=== PATIENT | male | born 1990 | race Caucasian/White ===

== ENCOUNTER 2016-11-11 17:56 | Emergency (ER) | payer OTHER ==
[~2016-11-11] VITALS: Ht 167.6 cm; Wt 70.0 kg
[2016-11-11 17:56] VITALS: TEMP 36.7; Ht 167.6 cm; Wt 70.0 kg
--- NOTE | 2016-11-11 18:09 | EMERGENCY ROOM VISIT NOTE ---
History Report prepared by Subha: Ar Iyer Under the Supervision of: Dr. Joo Estrada D.O. First contact with patient: 17:58 Stated Complaint: FACIAL PAIN/ABRASION/ MEMORY LOST, SKI ACCIDENT History of Present Illness The patient is a 26 year old male who presents to the Emergency Room with complaints of an acute fall that occurred when he was skiing just prior to arrival. The patient was skiing at [facility] when he fell. He is not sure what caused the fall. The patient lost consciousness when he fell. He now has a slight headache. The patient also notes that his face is numb on the left side. The patient denies neck, back, extremity pain, nausea, or vomiting. The patient was able to recognize his friends afterwards. The patient was not wearing a helmet. The patient denies an health problems. He is an occasional smoker but does not drink alcohol. 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 A total of 10 systems reviewed and were otherwise negative. Past Medical & Surgical Medical Problems: (1) Depression Family History No significant family history Social History Smoking Status: Current Some Day Smoker Alcohol Use: occasionally Marital Status: single Housing Status: lives with friends Occupation Status: [employer] student Current/Historical Medications No Active Prescriptions or Reported Meds Allergies Coded Allergies: No Known Allergies (Unverified , 11/11/16) Physical Exam Vital Signs Date Time Temp Pulse Resp B/P Pulse Ox O2 Delivery O2 Flow Rate FiO2 11/11/16 19:50 95 18 141/79 98 11/11/16 19:30 95 18 141/79 98 Room Air 11/11/16 17:56 18 11/11/16 17:56 36.7 100 18 141/79 98 Room Air Physical Exam GENERAL: Patient is awake, alert, and in no acute distress. Patient is resting comfortably and showing no signs of anxiety EYES: The conjunctivae are clear. The pupils are round and reactive. EARS, NOSE, MOUTH AND THROAT: The nose is without any evidence of any deformity. Mucous membranes are moist tongue is midline. TMs are clear bilaterally. No malocclusion noted. NECK: The neck is nontender and supple. RESPIRATORY: Normal respiratory effort is noted there is no evidence of wheezing rhonchi or rales CARDIOVASCULAR: Regular rate and rhythm noted there no murmurs rubs or gallops normal S1 normal S2 GASTROINTESTINAL: The abdomen is soft. Bowel sounds are present in all quadrants. Abdomen is nontender BACK: No midline tenderness or or step-off noted range of motion in flexion extension as well as rotation no signs of muscle spasm noted MUSCULOSKELETAL/EXTREMITIES: There is no evidence of gross deformity full range of motion is noted in the hips and shoulders SKIN: There is no obvious evidence of any rash. There are no petechiae, pallor or cyanosis noted. Contusion noted over the left forehead and left upper cheek. NEUROLOGIC: Patient is awake alert and oriented x3 strength is symmetric patellar reflexes are 2+ bilaterally Medical Decision & Procedures ER Provider Diagnostic Interpretation: CT results as stated below per my review and radiologist interpretation. CERVICAL SPINE CT CT DOSE: HISTORY: Trauma injury, left side of face TECHNIQUE: Multiaxial CT images of the cervical spine were performed and reformatted in the sagittal and coronal plane without the use of contrast. COMPARISON: None. FINDINGS: No fractures. No subluxation. Prevertebral soft tissues and the C1-C2 interval are intact. No pneumothorax. IMPRESSION: No fractures within the cervical spine. Electronically signed by: Nilton Hoyos M.D. 11/11/2016 6:34 PM Dictated Date/Time: 11/11/2016 6:[address]AST CT DOSE: HISTORY: Trauma. Change in mental status. injury, left side of face TECHNIQUE: Multiaxial CT images of the head were performed without the use of intravenous contrast. Comparison: 08/09/2015 Findings: The paranasal sinuses and mastoid air cells are clear. The calvarium and skull base are intact. The ventricles and sulci are within normal limits. There is no mass, hematoma, midline shift, or acute infarct. Impression: No acute intracranial abnormality. Electronically signed by: Nilton Hoyos M.D. 11/11/2016 6:30 PM Dictated Date/Time: 11/11/2016 6:[address] DOSE: 1046.90 mGy.cm HISTORY: Trauma injury, left side of face TECHNIQUE: Multiaxial CT images of the maxillofacial region were performed and reformatted in the coronal plane without the use of contrast. COMPARISON: None. FINDINGS: The visualized cervical spine, skull base, pterygoid plates, nasal bones, lamina papyracea, orbital floors, mandible, and zygomatic arches are intact. No fractures. The orbits are unremarkable. IMPRESSION: No fractures within the maxillofacial region. Electronically signed by: Nilton Hoyos M.D. 11/11/2016 6:32 PM Dictated Date/Time: 11/11/2016 6:30 PM ED Course 1805: The patient was evaluated in room C11a. A complete history and physical examination were performed. 1930: Reassessed the patient. Discussed the findings with him. He verbalized understanding and agreement of the treatment plan. The patient is ready for discharge. Medical Decision Etiologies such as fracture, dislocation, intra-abdominal, pneumothorax, intrathoracic , intracranial, neurologic, as well as other traumatic pathologies were entertained. Nursing notes reviewed. Additional history is obtained from the patient's friends. The patient is a 26-year-old male who presented to the emergency department for an evaluation after having an accident while skiing. The patient has obvious facial trauma but there was reported episode of confusion and repetitive questioning. The patient appears to be significantly improved at this time. His friends state that he appears to be at his baseline. He has no focal neurologic deficits. His CAT scan did not reveal any acute intracranial bleeding or facial bone injury. The patient did not wish to have any medications for pain at this time. He was encouraged to rest and avoid any strenuous activity. She was also given concussion instructions and encouraged to avoid screening time. He was also encouraged to follow-up with [facility] for possible referral concussion clinic and return to the emergency department immediately if symptoms change worsen or the need arises. Impression Primary Impression: Facial contusion Additional Impression: Head injury, closed, with concussion Scribe Attestation The scribe's documentation has been prepared under my direction and personally reviewed by me in its entirety. I confirm that the note above accurately reflects all work, treatment, procedures, and medical decision making performed by me. Departure Information Dispostion Home / Self-Care Prescriptions No Active Prescriptions or Reported Meds Referrals [facility] (PCP) Forms HOME CARE DOCUMENTATION FORM, IMPORTANT VISIT INFORMATION, School Instructions, Work Instructions Patient Instructions Concussion, My [facility] Additional Instructions Rest and avoid any strenuous activity. Try to limit screen time including computers and handheld devices. Continue using Motrin and Tylenol as directed for headache. Follow-up with [facility] this week. If symptoms do not improve I would recommend a referral to the concussion clinic for further evaluation and treatment. Problem Qualifiers
--- NOTE | 2016-11-11 18:31 | DIAGNOSTIC IMAGING REPORT ---
HEAD CT NONCONTRAST CT DOSE: HISTORY: Trauma. Change in mental status. injury, left side of face TECHNIQUE: Multiaxial CT images of the head were performed without the use of intravenous contrast. Comparison: 08/09/2015 Findings: The paranasal sinuses and mastoid air cells are clear. The calvarium and skull base are intact. The ventricles and sulci are within normal limits. There is no mass, hematoma, midline shift, or acute infarct. Impression: No acute intracranial abnormality. Electronically signed by: Nilton Hoyos M.D. 11/11/2016 6:30 PM Dictated Date/Time: 11/11/2016 6:29 PM
--- NOTE | 2016-11-11 18:33 | DIAGNOSTIC IMAGING REPORT ---
MAXILLOFACIAL CT CT DOSE: 1046.90 mGy.cm HISTORY: Trauma injury, left side of face TECHNIQUE: Multiaxial CT images of the maxillofacial region were performed and reformatted in the coronal plane without the use of contrast. COMPARISON: None. FINDINGS: The visualized cervical spine, skull base, pterygoid plates, nasal bones, lamina papyracea, orbital floors, mandible, and zygomatic arches are intact. No fractures. The orbits are unremarkable. IMPRESSION: No fractures within the maxillofacial region. Electronically signed by: Nilton Hoyos M.D. 11/11/2016 6:32 PM Dictated Date/Time: 11/11/2016 6:30 PM
--- NOTE | 2016-11-11 18:35 | DIAGNOSTIC IMAGING REPORT ---
CERVICAL SPINE CT CT DOSE: HISTORY: Trauma injury, left side of face TECHNIQUE: Multiaxial CT images of the cervical spine were performed and reformatted in the sagittal and coronal plane without the use of contrast. COMPARISON: None. FINDINGS: No fractures. No subluxation. Prevertebral soft tissues and the C1-C2 interval are intact. No pneumothorax. IMPRESSION: No fractures within the cervical spine. Electronically signed by: Nilton Hoyos M.D. 11/11/2016 6:34 PM Dictated Date/Time: 11/11/2016 6:32 PM
[2016-11-11 19:50] VITALS: BP 141/79; PULSE 95; O2SAT 98
== END 2016-11-11 19:52 | disposition home or self-care (01) ==
LOC: EDBD 17:56 → C.EDC 17:57
DX: S00.83XA Contusion of other part of head, initial encounter (principal); S06.0X9A Concussion with loss of consciousness of unspecified duration, initial encounter; V00.321A Fall from snow-skis, initial encounter; F17.210 Nicotine dependence, cigarettes, uncomplicated

== ENCOUNTER 2017-10-29 18:21 | Inpatient (IN) | payer OTHER ==
[~2017-10-29] VITALS: Ht 170.2 cm; Wt 78.4 kg
[2017-10-29] MEDS ORDERED: EFF75 PO (19:08)
--- NOTE | 2017-10-29 19:08 | EMERGENCY ROOM VISIT NOTE ---
History Report prepared by Subha: Genoveva Robbins Under the Supervision of: Dr. Smaantha Cha D.O. First contact with patient: 18:40 Chief Complaint: OVERDOSE (INTENTIONAL) Stated Complaint: OVERDOSE APROLASM AND SLEEPING AID History of Present Illness The patient is a 26 year old male who presents to the Emergency Room with complaints of an episode of an intentional medication overdose occurring last night. The patient states that last night he took about 24, 25 mg sleeping pills / The patient states that after taking the sleeping pills her took his alprazolam. After taking the medication, the patient states he pulled a bag over his head. He states he researched suicide attempts and states suffocating is the most "peaceful way to commit suicide on the internet". The patient reports he does not remember what happened after that. He states we was awoken from a knock on the door at 5 pm tonight, about two hours ago. The patient states that his friend apparently jumped on his balcony around 1 pm today and saw that the patient was sleeping. When the patient was woken up from the knock on the door, his room was a mess, there was vomit all over the floor, and he was not wearing any clothes. The patient states he attempted to commit suicide a couple years ago by cutting himself. He reports he started to feel depressed and have suicidal thoughts at the beginning of this school semester. The patient is also on Effexor The patient states his physician tried to increase his Effexor but he refused to take the increased dosage. The patient has a therapist but states he was unable to talk to his therapist this past week. Presently, the patient has a headache. He notes some fleeting homicidal thoughts. He states that sometimes he feels like people are out to get him. The patient has a family history of depression. Pt denies headache, change in vision , fevers, chest pain, shortness of breath, nausea, vomiting, diarrhea, pain with urination, and melena. Source of History: patient Onset: last night Position: other (generalized) Quality: other (medication overdose) Timing: other (episode) Associated Symptoms: + headache, No fevers, No chest pain, No SOB, No nausea , No vomiting, No diarrhea, No urinary symptoms Review of Systems See HPI for pertinent positives & negatives. A total of 10 systems reviewed and were otherwise negative. Past Medical & Surgical Medical Problems: (1) Depression (2) Depression (3) OK (generalized anxiety disorder) (4) Major depressive disorder, recurrent severe without psychotic features Family History Depression Social History Smoking Status: Never Smoker Occupation Status: [employer] student Current/Historical Medications Scheduled Venlafaxine Hcl (Effexor), 37.5 MG PO DAILY Scheduled PRN [Alprazolam], 1 TAB PO DIRECTED PRN for Anxiety Allergies Coded Allergies: No Known Allergies (Unverified , 11/11/16) Physical Exam Vital Signs Date Time Temp Pulse Resp B/P (MAP) Pulse Ox O2 Delivery O2 Flow Rate FiO2 10/29/17 23:19 79 18 121/59 98 Room Air 10/29/17 20:54 86 18 123/75 98 Room Air 10/29/17 18:32 93 18 101/65 99 Room Air Physical Exam GENERAL: alert, well appearing, well nourished, no distress, non-toxic EYE EXAM: normal conjunctiva, PERRL and EOM's grossly intact OROPHARYNX: no exudate, no erythema, lips, buccal mucosa, and tongue normal and mucous membranes are moist NECK: supple, no nuchal rigidity, no adenopathy, non-tender LUNGS: Clear to auscultation. Normal chest wall mechanics HEART: no murmurs, S1 normal and S2 normal ABDOMEN: abdomen soft, non-tender, normo-active bowel sounds, no masses, no rebound or guarding. BACK: Back is symmetrical on inspection and there is no deformity, no midline tenderness, no CVA tenderness. SKIN: no rashes and no bruising UPPER EXTREMITIES: upper extremities are grossly normal. LOWER EXTREMITIES: No pitting edema. NEURO EXAM: Normal sensorium, cranial nerves II-XII grossly intact, normal speech, no gross weakness of arms, no gross weakness of legs. Medical Decision & Procedures ER Provider Diagnostic Interpretation: Radiology results have been interpreted by the radiologist and reviewed by me. HEAD WITHOUT CONTRAST (CT) Findings: The paranasal sinuses and mastoid air cells are clear. The calvarium and skull base are intact. The ventricles and sulci are within normal limits. There is no mass, hematoma, midline shift, or acute infarct. Impression: No acute intracranial abnormality. The above report was generated using voice recognition software. It may contain grammatical, syntax or spelling errors. Electronically signed by: Nilton Hoyos M.D. Laboratory Results 10/29/17 19:36 Red Blood Count 5.04, Mean Corpuscular Volume 86.9, Mean Corpuscular Hemoglobin 31.0, Mean Corpuscular Hemoglobin Concent 35.6, Mean Platelet Volume 10.5, Neutrophils (%) (Auto) 59.0, Lymphocytes (%) (Auto) 30.8, Monocytes (%) (Auto) 8.7, Eosinophils (%) (Auto) 1.1, Basophils (%) (Auto) 0.1, Neutrophils # (Auto) 4.12, Lymphocytes # (Auto) 2.15, Monocytes # (Auto) 0.61, Eosinophils # (Auto) 0.08, Basophils # (Auto) 0.01 10/29/17 19:39 Test 10/29/17 19:05 10/29/17 19:36 10/29/17 19:39 10/29/17 19:50 Urine Opiates Screen NEG (NEG) Urine Methadone, Qualitative NEG (NEG) Urine Barbiturates NEG (NEG) Urine Phencyclidine (PCP) Level NEG (NEG) Ur Amphetamine/Methamphetamine NEG (NEG) MDMA (Ecstasy) Screen NEG (NEG) Urine Benzodiazepines Screen POS (NEG) Urine Cocaine Metabolite NEG (NEG) Urine Marijuana (THC) NEG (NEG) White Blood Count 6.99 K/uL (4.8-10.8) Red Blood Count 5.04 M/uL (4.7-6.1) Hemoglobin 15.6 g/dL (14.0-18.0) Hematocrit 43.8 % (42-52) Mean Corpuscular Volume 86.9 fL (80-100) Mean Corpuscular Hemoglobin 31.0 pg (25-34) Mean Corpuscular Hemoglobin Concent 35.6 g/dl (32-36) Platelet Count 247 K/uL (130-400) Mean Platelet Volume 10.5 fL (7.4-10.4) Neutrophils (%) (Auto) 59.0 % Lymphocytes (%) (Auto) 30.8 % Monocytes (%) (Auto) 8.7 % Eosinophils (%) (Auto) 1.1 % Basophils (%) (Auto) 0.1 % Neutrophils # (Auto) 4.12 K/uL (1.4-6.5) Lymphocytes # (Auto) 2.15 K/uL (1.2-3.4) Monocytes # (Auto) 0.61 K/uL (0.11-0.59) Eosinophils # (Auto) 0.08 K/uL (0-0.5) Basophils # (Auto) 0.01 K/uL (0-0.2) RDW Standard Deviation 41.1 fL (36.4-46.3) RDW Coefficient of Variation 12.9 % (11.5-14.5) Immature Granulocyte % (Auto) 0.3 % Immature Granulocyte # (Auto) 0.02 K/uL (0.00-0.02) Ethyl Alcohol mg/dL < 3.0 mg/dl (0-3) Prothrombin Time 10.0 SECONDS (9.0-12.0) Prothromb Time International Ratio 1.0 (0.9-1.1) Anion Gap 4.0 mmol/L (3-11) Est Creatinine Clear Calc Drug Dose 113.6 ml/min Estimated GFR () 131.8 Estimated GFR (Non- 113.7 BUN/Creatinine Ratio 11.0 (10-20) Calcium Level 8.8 mg/dl (8.5-10.1) Magnesium Level 1.9 mg/dl (1.8-2.4) Total Bilirubin 0.5 mg/dl (0.2-1) Aspartate Amino Transf (AST/SGOT) 15 U/L (15-37) Alanine Aminotransferase (ALT/SGPT) 32 U/L (12-78) Alkaline Phosphatase 75 U/L (45-117) Total Protein 7.0 gm/dl (6.4-8.2) Albumin 3.7 gm/dl (3.4-5.0) Globulin 3.3 gm/dl (2.5-4.0) Albumin/Globulin Ratio 1.1 (0.9-2) Lipase 192 U/L (73-393) Thyroid Stimulating Hormone (TSH) 0.429 uIu/ml (0.300-4.500) Salicylates Level < 1.7 mg/dl (2.8-20) Acetaminophen Level < 2 ug/ml (10-30) Urine Color YELLOW Urine Appearance CLEAR (CLEAR) Urine pH 6.5 (4.5-7.5) Urine Specific Eldred 1.016 (1.000-1.030) Urine Protein NEG (NEG) Urine Glucose (UA) NEG (NEG) Urine Ketones NEG (NEG) Urine Occult Blood NEG (NEG) Urine Nitrite NEG (NEG) Urine Bilirubin NEG (NEG) Urine Urobilinogen NEG (NEG) Urine Leukocyte Esterase NEG (NEG) Laboratory results per my review. ECG Indication: toxicologic Rate (beats per minute): 81 Rhythm: sinus rhythm Findings: no acute ischemic change, no ectopy, other (normal axis normal intervals, mild T-wave flattening in lead 3, aVF, aVL.) Change: EKG interpreted by me. ED Course 184: The patient was evaluated in room A6. A complete history and physical exam was performed. 2352: Patient to be transported up to 3 S. Voluntary admission form signed. Medical Decision Differential diagnosis: Etiologies such as mood disorder, infection, hypoglycemia, electrolyte abnormalities, cardiac sources, intracerebral event, toxicologic, neurologic, as well as others were entertained. Pt well appearing here despite OD attempt last night. No evidence of complication related to OD or persistent sx. No n/v here. Pt awake/alert. Labs reassuring. VS stable. Pt agreeable with plan for admission for depression/SI and attempt. Pt calm and cooperative throughout. Doubt additional coingestion last night. No evidence of persistent anticholinergic syndrome. Medication Reconcilliation Current Medication List: was personally reviewed by me Blood Pressure Screening Patient's blood pressure: Normal blood pressure Impression Primary Impression: Depression Additional Impressions: Suicide attempt Homicidal ideation Overdose Scribe Attestation The scribe's documentation has been prepared under my direction and personally reviewed by me in its entirety. I confirm that the note above accurately reflects all work, treatment, procedures, and medical decision making performed by me. Departure Information Patient Instructions My [facility] Problem Qualifiers Primary Impression: Depression Depression Type: unspecified Qualified Codes: F32.9 - Major depressive disorder, single episode, unspecified Additional Impressions: Overdose Encounter type: initial encounter Injury intent: intentional self-harm Qualified Codes: T50.902A - Poisoning by unspecified drugs, medicaments and biological substances, intentional self-harm, initial encounter
[2017-10-29] MEDS ORDERED: ALPRAZOLAM PO (19:10)
[2017-10-29 19:56] LABS: BASO % 0.1 %; BASO ABS # 0.01 K/uL (0-0.2); EOS % 1.1 %; EOS ABS # 0.08 K/uL (0-0.5); HEMATOCRIT 43.8 % (42-52); HEMOGLOBIN 15.6 g/dL (14.0-18.0); IG# 0.02 K/uL (0.00-0.02); LYMPH % 30.8 %; LYMPH ABS # 2.15 K/uL (1.2-3.4); MEAN CELL VOLUME 86.9 fL (80-100); MEAN CORPUSCULAR HGB CONC 35.6 g/dl (32-36); MEAN PLATELET VOLUME 10.5 fL (7.4-10.4); MONO % 8.7 %; MONO ABS # 0.61 K/uL (0.11-0.59); NEUT ABS # 4.12 K/uL (1.4-6.5); PLATELET COUNT 247 K/uL (130-400); RED CELL DISTRIBUTION WIDTH CV 12.9 % (11.5-14.5); RED CELL DISTRIBUTION WIDTH SD 41.1 fL (36.4-46.3); WHITE BLOOD COUNT 6.99 K/uL (4.8-10.8)
--- NOTE | 2017-10-29 19:59 | DIAGNOSTIC IMAGING REPORT ---
HEAD WITHOUT CONTRAST (CT) CT DOSE: 537.48 mGy.cm HISTORY: Mental status change fall, head trauma TECHNIQUE: Multiaxial CT images of the head were performed without the use of intravenous contrast. A dose lowering technique was utilized adhering to the principles of ALARA. Comparison: None. Findings: The paranasal sinuses and mastoid air cells are clear. The calvarium and skull base are intact. The ventricles and sulci are within normal limits. There is no mass, hematoma, midline shift, or acute infarct. Impression: No acute intracranial abnormality. The above report was generated using voice recognition software. It may contain grammatical, syntax or spelling errors. Electronically signed by: Nilton Hoyos M.D. 10/29/2017 7:58 PM Dictated Date/Time: 10/29/2017 7:57 PM
[2017-10-29 20:19] LABS: ALBUMIN 3.7 gm/dl (3.4-5.0); CALCIUM 8.8 mg/dl (8.5-10.1); CREATININE 0.93 mg/dl (0.60-1.40); POTASSIUM 3.6 mmol/L (3.5-5.1)
[2017-10-30] MEDS ORDERED: LORAZEPAM 1 MG TAB PO PRN (00:15)
[2017-10-30] MEDS ORDERED: NURSING VERBAL MED ORDER ONE (00:15)
[2017-10-30 00:30] VITALS: O2SAT 98
[2017-10-30] MEDS ORDERED: ALUMINUM/MAGNESIUM SUSP 30 ML UDC PO PRN (00:45)
[2017-10-30] MEDS ORDERED: MAGNESIUM HYDROXIDE SUSP 30 ML UDC PO PRN (00:45)
[2017-10-30] MEDS ORDERED: hydrOXYzine HCL 25 MG TAB PO PRN ×2 (00:45)
[2017-10-30] MEDS ORDERED: SODIUM CHLORIDE 0.65% NA SOLN 45 ML (OCEAN) PRN (00:45)
[2017-10-30] MEDS ORDERED: BISMUTH SUBSALICYLATE PER ML OMNICELL CHARGE PO PRN (00:45)
[2017-10-30] MEDS ORDERED: ACETAMINOPHEN 325 MG TAB PO PRN (00:45)
[2017-10-30 04:46] VITALS: BP 118/62; PULSE 76; TEMP 36.8; Ht 170.2 cm; Wt 78.4 kg
[2017-10-30 07:03] VITALS: BP_SYST 105; BP_SYST 107; BP_DIAS 62; PULSE 83; PULSE 98; TEMP 36.6
[2017-10-30] MEDS ORDERED: EFF/375 PO (09:14)
[2017-10-30] MEDS ORDERED: VENLAFAXINE HCL XR 75 MG CAPXR PO ONE (09:26)
--- NOTE | 2017-10-30 09:26 | Psychiatric History & Physical ---
History Date of Service Oct 30, 2017. Identifying Data Tete Tolliver is a 27-year-old male admitted voluntarily on Oct 30, 2017 at 00:08 after being brought to the ED by his onion topper and friends following an intentional toxic ingestion of multiple sleeping medications in a suicide attempt. Information is gathered from the patient and considered to be reliable. Chief Complaint "Is it worth it (life)?". 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 At that time he was treated with Zoloft and discharged to the outpatient care of Dr. Jackson. Since that time he apparently has also had a trial of Wellbutrin which she said he felt unwell on. Today his story is a little disjointed and unclear. 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 He feels, however, that he has not excelled in his studies and has a current GPA of just over 2.0. He has been struggling academically and last semester did not take at least one final which she was scheduled to take on Sunday morning. He got to worrying about that, feeling that if he took the final and failed, he would have to pay back his scholarships from [employer]. He did not want to risk this and so in view of his poor self image and risk for losing his scholarships, he began to consider the option of suicide. He is also under stress with his family. Apparently his mother is quite ill, in [place], and having some problems with her memory. He indicates that she had a stomach surgery with complications resulting in seizures. He says she is not fully intact, not remembering many times that he is in school in [place]. He feels, as her only son, that he should be there however he is not able to and so his sister is there with her and feels like he is also letting his sister down. Philosophically, he believes that suicide is not a sin and does not necessarily reflect state of depression but more a logical choice given the above stressors. On Sunday, he made a decision to end his life. He says he got "dressed up" and ingested [id number] sleeping pills and Xanax in a suicide attempt. He knew that that would not kill him and so he put 2 bags over his head and secured them with earphones in his ears playing his favorite music. Nursing staff also report that his phone was and perhaps hidden so that he could not summoned help. The patient remembers little after putting bags on his head and at 5:00 on Sunday, he was awakened by knocking at the door. At that time he found that he had no pants on , had vomited in his room, had ripped off the bags over his head. It is reported that his family friends and [facility] onion topper had attempted to contact him because he did not show up at [employer]. They ended up going to his apartment and found him in that condition. He did admit to his [facility] onion topper that he had taken the overdose and they brought him to the emergency department. He reports that his mood is been depressed for 2 or 3 years, and suicidal thinking has been going on intermittently recently. He reports that his sleep has been "horrible" and says that he wakes up feeling unrested and his mind immediately racing. He reports appetite that is essentially normal but he believes he is putting on weight because he is not active. He says his energy is "as low as it gets" although forces himself to be active and energetic when people are around. He denies any overt auditory or visual hallucinations. He does admit to a lot of negative self talk telling himself that he is stupid and unworthy. He says he has had a lot of anxiety especially in the last year having experienced a panic attack about one year ago. He denies any problems with eating disorders. He denies any discrete episodes of euphoric mood, sleeplessness or pleasure seeking behaviors that would be congruent with a bipolar disorder. He sees Dr. Jackson at [facility] has recommended a higher dose of Effexor but the patient has not wanted to take more because in his culture it is not seen positively. She had wanted him to take 75 but he is only taking 37.5 mg. Past Psychiatric History Current OP Treatment: psychiatrist (Dr. Jackson at [facility]), therapist (Leda [facility] at [facility]) Prior OP Treatment: no prior treatment Prior Psych Hospitalizations: [facility] (2013) Access to a Gun: No Suicide Attempts: Yes (by cutting his wrists in 2013) Past Medication Trials 1. Zoloft- felt worse, more depressed 2. Wellbutrin0 didn't like the way he felt Past Medical/Surgical History History of Concussion/Seizure: No Allergies Allergies: Coded Allergies: No Known Allergies (Unverified , 11/11/16) Home Medications Scheduled Venlafaxine Hcl (Effexor), 75 MG PO DAILY Scheduled PRN [Alprazolam], 1 TAB PO DIRECTED PRN for Anxiety Family History Depression No significant family history History of Suicide: No History of Substance Abuse: No Psychiatric History: Yes (mother with depression and anxiety) Mother with poorly explained medical conditions Alcohol Use Alcohol Use In Past 12 Months: No AUDIT Total Score: 0 Smoking Use Smoking Status: Light Tobacco Smoker 2 packs in the last 2 weeks Substance History Denies Personal History Lives in: [facility] College Childhood: Raised in [facility]. Parents when he was 6. He has 1 sister. Education: started college (will graduate in February) Work History: Does not work outside of school but will be returning to [employer] upon graduation Relationship History: never Children: none Spiritual Affiliation: Church Legal History: none Psychological Trauma History: Denies Hx Traumatic Event Review of Systems Constitutional: malaise Eyes: denies: no symptoms, as stated in HPI, eye pain, tearing, itching, redness, discharge, double vision, visual changes, blurred vision, photophobia, other ENT: denies: no symptoms reported, see HPI, ear pain, ear discharge, loss of hearing, tinnitus, nasal pain, nasal congestion, rhinorrhea, epistaxis, sore throat, stidor, throat swelling, mouth pain, mouth swelling, dental pain, gum swelling, other Cardiovascular: denies: no symptoms reported, see HPI, chest pain, chest tightness, chest pressure, diaphoresis, palpitations, syncope, other Respiratory: denies: no symptoms reported, see HPI, cough, orthopnea, short of breath, stridor, wheezing, sputum production, cyanosis, NEUMANN, PND, other Gastrointestinal: denies no symptoms reported, denies see HPI, denies abdominal pain, denies constipation, denies diarrhea, denies nausea, denies vomiting, denies other Genitourinary - Male: denies: no symptoms, see HPI, rash, amenorrhea, penile itching, penile discharge, testicular pain, testicular swelling, impotence, other Musculoskeletal: denies no symptoms reported, denies see HPI, denies back pain , denies gout, denies joint pain, denies joint swelling, denies muscle pain, denies muscle stiffness, denies neck pain, denies other Integumentary: other (abrasion right cheek bone) Neurologic: reports: headache Endocrine: denies: no symptoms, as stated in HPI, cold intolerance, heat intolerance, hair changes, goiter, polydipsia, polyuria, skin changes, other Hematologic / Lymphatic: denies: no symptoms, as stated in HPI, abnormal clotting, adenopathy, anemia, easy bleeding, easy bruising, gums bleeding, petechiae, other Examination Physical Examination Exam performed by Dr. villafuerte in the emergency Department has been reviewed and accepted his medical clearance for our unit Vital Signs Vital Signs Past 12 Hours Date Time Temp Pulse Resp B/P (MAP) Pulse Ox O2 Delivery O2 Flow Rate FiO2 10/30/17 07:03 36.6 83 16 107/62 98 105/62 10/30/17 04:46 36.8 76 18 118/62 10/30/17 00:30 79 18 121/59 98 10/29/17 23:19 79 18 121/59 98 Room Air Laboratory Results Last 24 Hours Test 10/29/17 19:05 10/29/17 19:36 10/29/17 19:39 10/29/17 19:50 Urine Opiates Screen NEG Urine Methadone, Qualitative NEG Urine Barbiturates NEG Urine Phencyclidine (PCP) Level NEG Ur Amphetamine/Methamphetamine NEG MDMA (Ecstasy) Screen NEG Urine Benzodiazepines Screen POS Urine Cocaine Metabolite NEG Urine Marijuana (THC) NEG White Blood Count 6.99 K/uL Red Blood Count 5.04 M/uL Hemoglobin 15.6 g/dL Hematocrit 43.8 % Mean Corpuscular Volume 86.9 fL Mean Corpuscular Hemoglobin 31.0 pg Mean Corpuscular Hemoglobin Concent 35.6 g/dl Platelet Count 247 K/uL Mean Platelet Volume 10.5 fL Neutrophils (%) (Auto) 59.0 % Lymphocytes (%) (Auto) 30.8 % Monocytes (%) (Auto) 8.7 % Eosinophils (%) (Auto) 1.1 % Basophils (%) (Auto) 0.1 % Neutrophils # (Auto) 4.12 K/uL Lymphocytes # (Auto) 2.15 K/uL Monocytes # (Auto) 0.61 K/uL Eosinophils # (Auto) 0.08 K/uL Basophils # (Auto) 0.01 K/uL RDW Standard Deviation 41.1 fL RDW Coefficient of Variation 12.9 % Immature Granulocyte % (Auto) 0.3 % Immature Granulocyte # (Auto) 0.02 K/uL Ethyl Alcohol mg/dL < 3.0 mg/dl Prothrombin Time 10.0 SECONDS Prothromb Time International Ratio 1.0 Sodium Level 139 mmol/L Potassium Level 3.6 mmol/L Chloride Level 105 mmol/L Carbon Dioxide Level 30 mmol/L Anion Gap 4.0 mmol/L Blood Urea Nitrogen 10 mg/dl Creatinine 0.93 mg/dl Est Creatinine Clear Calc Drug Dose 113.6 ml/min Estimated GFR () 131.8 Estimated GFR (Non- 113.7 BUN/Creatinine Ratio 11.0 Random Glucose 77 mg/dl Calcium Level 8.8 mg/dl Magnesium Level 1.9 mg/dl Total Bilirubin 0.5 mg/dl Aspartate Amino Transf (AST/SGOT) 15 U/L Alanine Aminotransferase (ALT/SGPT) 32 U/L Alkaline Phosphatase 75 U/L Total Protein 7.0 gm/dl Albumin 3.7 gm/dl Globulin 3.3 gm/dl Albumin/Globulin Ratio 1.1 Lipase 192 U/L Thyroid Stimulating Hormone (TSH) 0.429 uIu/ml Salicylates Level < 1.7 mg/dl Acetaminophen Level < 2 ug/ml Urine Color YELLOW Urine Appearance CLEAR Urine pH 6.5 Urine Specific [place] 1.016 Urine Protein NEG Urine Glucose (UA) NEG Urine Ketones NEG Urine Occult Blood NEG Urine Nitrite NEG Urine Bilirubin NEG Urine Urobilinogen NEG Urine Leukocyte Esterase NEG Mental Examination During interview pt is: alert and oriented, cooperative Appearance: appropriately dressed, disheveled Eye contact is: good Motor behavior is: no abnormal motor movements Speech: normal in rate, rhythm & volume Affect: anxious Mood is: depressed, anxious Thought process: other Thought content: reality based without delusions Suicidal thought are: present, Plan: present, Intent: present Homicidal thoughts are: denied Hallucinations: denies auditory, denies visual Cognition: memory grossly intact (with the exception of the period of time after ingesting the overdose) Intelligence estimated to be: average Insight: impaired Judgement: impaired Impression / Recommendations Impression 27-year-old [employer] student admitted following suicide attempt by polydrug overdose. He seems cautious in a philosophical quandary about whether or not he should have the right to end his life given his attitude toward his usefulness. We have discussed the fact that he is likely viewing life through depression colored glasses and deserves to completely treat his depression before making any decisions. To that end, he has agreed to increase his Effexor to 75 mg today and hopefully getting to a therapeutic dose of 150 mg as soon as possible. Risks, benefits, and alternatives reviewed and accepted including the risk for decreased sex drive and interfering with orgasm. He had previously been informed of the black box warning. In view of his mother's medical conditions, he does not want to involve her in his treatment, but has already told his friends to notify his sister of his hospitalization. We will coordinate with his current outpatient providers and assist him to communicate with the school as needed. At this time, the patient requires inpatient mental health treatment due to the severity of his condition and the risk for self- harm if discharged. Inventory Assets Strengths: Love of family, willingness to engage in treatment Needs: To develop additional healthy coping strategies Risk Factors Assessment Male: Yes : Yes /single/: Yes Higher / Fall in social status: No Access to guns: No Health problems: No Mental Health Diagnoses: Yes Substance use disorders: No Previous attempt: Yes Previous attempt;highly lethal: No Previous psychiatric stay: Yes Hopelessness: Yes Smoker: Yes Protective Factors Assessment Adventist beliefs: Yes : No Responsible for young children: No Employed: No Stable relationships: Yes Supportive family: Yes Good rapport with provider: Yes Recommendations (1) Major depressive disorder, recurrent severe without psychotic features 10/30 - Patient willing to increase Effexor to therapeutic dose. Will increase to 75 mg today and titrate to 150 as soon as possible - Obtain records from an coordinate care with current outpatient providers - Family meeting by phone with sister as needed - Contact the school as needed - Assist the patient to explore and utilize healthy coping strategies - Every 15 minute checks for safety - Encourage participation in group and individual counseling (2) OK (generalized anxiety disorder) 10/30 - Assist the patient to explore concepts of mindfulness - Effexor as above Dr. Sapna soto is personally been involved in reviewing the above case and the development of the above recommendations CPT Code Initial Hospital Care: 94680
[2017-10-30 13:35] VITALS: BP 104/58; PULSE 80; TEMP 36.4
[2017-10-30 16:40] VITALS: BP 113/49; PULSE 72; TEMP 36.4
[2017-10-31 07:01] VITALS: BP_SYST 115; BP_SYST 120; BP_DIAS 65; BP_DIAS 70; PULSE 73; PULSE 83; TEMP 36.8
[2017-10-31] MEDS: VENLAFAXINE HCL XR 75 MG CAPXR PO SCH (08:57)
--- NOTE | 2017-10-31 12:31 | Psychiatric Progress Notes ---
Progress Note Date of Service Oct 31, 2017. Interval History Tete Tolliver is a 27-year-old male admitted voluntarily on Oct 30, 2017 at 00:08 after being brought to the ED by his impregnating tank operator and friends following an intentional toxic ingestion of multiple sleeping medications in a suicide attempt. Chief Complaint "A little better". Subjective Patient was seen & assessed interval progress reviewed with Treatment Team. Staff report he met with the social media marketing manager to discuss his plans regarding school and where he will live, and was initially overwhelmed and unable to process his situation. He also checked the unit doors, saying he wanted to know if they were locked. In contacting [facility] to determine if he could be seen there for outpatient treatment, it was discovered that he is not enrolled in [employer] and is on academic suspension, and is also in default as he did not pay for his last semester yet. The office of student care and advocacy was contacted as well. He told staff that he was "indifferent" about life, and smiled while discussing all of the planning he put into his suicide attempt. He said "the only thing worse than completing suicide is failing at it." He also said that he did not feel any different than when he was admitted to the hospital. He met with the social media marketing manager again today and they contacted his sister, who is in [place] with his mother. She encouraged him to return home after discharge from the hospital so that he can be with family. He discussed in more detail his school stressors and the role this played in his plan suicide. He said that he did not complete some of his classes last semester, so deferred the grades, and never completed the finals so was unable to get his final grades, which he needed to get his scholarship money for this semester. He did not know how to get out of this cycle, and decided to end his life, as he also thought this would prevent his family from being billed for his education. He also talked about his desire to "go out on top" rather than waiting until his life continued to deteriorate. On my exam today, the patient states he is feeling a bit better after talking to his sister, who is in [place] with their mother who is ill, who told him he should enroll in a university in [facility], and he now thinks this might be a good option for him. He says she was also upset with him for trying to kill himself. He feels a little more hopeful about his future, saying "I thought it was the end of the road, but maybe not." He was also pleased to hear that his mother walked for the first time in over a year today, as she has been in [place] for a year getting medical treatment. He remains stressed by his financial issues, stating he has to pay back his scholarship money. He is working with the social media marketing manager to clarify his status with the university. He continues to think about suicide, and says "the problem is that there's not a really successful method, it's a lot harder than people think." He says he researched it extensively, and knows that shooting and hanging are the most likely to end in , and his chosen method was the third. He doesn't think he would attempt suicide again right now because he wouldn't want to be unsuccessful again. He talked about "throwing everyone off my scent, by making appointments with everyone for the week after." He continues to express remorse that his suicide attempt did not work and that he is still alive, saying he is "disappointed, it's like a project , I put a lot of work into it." He plans to go to [place] to be with his family after discharge, and says his girlfriend who is in [place] is coming here on Sunday. He is worried she might break up with him, saying "she is really mad too." He also has to go to [facility] to renew his passport, as it expires this year. He reports he has bottles of Effexor and Advil at home, possibly others. He says the Xanax he overdosed on was an old prescription, and that it is gone, as he took the whole bottle. Sleep Information Total Hours of Sleep: 6.50 Meal Information Percent of Breakfast Consumed: 100 Percent of Lunch Consumed: 100 Percent of Dinner Consumed: 100 Mental Status Exam During interview pt is: alert and oriented, cooperative Appearance: appropriately dressed, disheveled, other (abrasion on right side of face, states he doesn't know how it got there) Eye contact is: good Motor behavior is: no abnormal motor movements Speech: normal in rate, rhythm & volume Affect: anxious, other (incongruent with stated mood) Mood is: other ("a little bit better") Thought process: goal directed Thought content: reality based without delusions Suicidal thought are: present, Plan: present (discusses various methods that he has researched extensively) Homicidal thoughts are: denied Hallucinations: denies auditory, denies visual Cognition: memory grossly intact (with the exception of the period of time after ingesting the overdose), attention grossly intact, language grossly intact Intelligence estimated to be: average Insight: impaired Judgement: impaired Medication Trials 1. Zoloft- felt worse, more depressed 2. Wellbutrin - didn't like the way he felt 3. 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 He continues to report disappointment that he did not , and his affect is incongruent. On admission, he agreed to increase his Effexor to 75 mg daily, and we will aim for 150 mg before discharge. He has had decreased sex drive and anorgasmia, but discussed the importance of treating his depression first, which is life threatening, and then working on a plan for mitigating side effects at a later date, which he is in agreement with. His sister has been contacted, and we are trying to coordinate with the [facility] regarding his status there, while planning for appropriate aftercare and supports in [facility], as he is now planning on returning home. The logistics are very complex, as his family is currently in [place]. At this time, the patient requires inpatient mental health treatment due to the severity of his condition and the risk for self-harm if discharged. Plan (1) Major depressive disorder, recurrent severe without psychotic features 10/30 - Patient willing to increase Effexor to therapeutic dose. Will increase to 75 mg today and titrate to 150 as soon as possible - Obtain records from an coordinate care with current outpatient providers - Family meeting by phone with sister as needed - Contact the school as needed - Assist the patient to explore and utilize healthy coping strategies - Every 15 minute checks for safety - Encourage participation in group and individual counseling 10/31 - Continue increased dose of venlafaxine XR 75 mg daily, and increase to 112.5 mg daily for tomorrow. - Family meeting held with sister by phone today; she encouraged the patient to return home to be with family, which she is agreeing to. He is stating he will need to go to court weight first, and then on to [place] to join his mother and sister. He will need aftercare in that area, so we'll need further clarification about which country he will be in and for how long. - Social work is coordinating with the [employer] regarding his status as a student here. - He will need a comprehensive safety plan. (2) OK (generalized anxiety disorder) 10/30 - Assist the patient to explore concepts of mindfulness - Effexor as above Discharge / Aftercare Planning Primary Care Physician: Name: None Therapist: Name: Qasim [facility] Date of Appointment: Nov 06, 2017 Time of Appointment: 12:00 p.m. Dual Hose Cementer: Name: None Visit Code E&M Code: 91720 Inventory Assets Strengths: Love of family, willingness to engage in treatment Needs: To develop additional healthy coping strategies Risk Factors Assessment Male: Yes : Yes /single/: Yes Higher / Fall in social status: No Health problems: No Mental Health Diagnoses: Yes Substance use disorders: No Previous attempt: Yes Previous attempt;highly lethal: No Previous psychiatric stay: Yes Hopelessness: Yes Smoker: Yes Protective Factors Assessment Moravian beliefs: Yes : No Responsible for young children: No Employed: No Stable relationships: Yes Supportive family: Yes Good rapport with provider: Yes Data Vital Signs Last 24 Hrs: Date Time Temp Pulse Resp B/P (MAP) Pulse Ox O2 Delivery O2 Flow Rate FiO2 10/31/17 07:01 36.8 73 16 120/65 83 115/70 10/30/17 16:40 36.4 72 16 113/49 10/30/17 13:35 36.4 80 16 104/58 Meds Administered Last 24 Hrs: Meds Administered (Past 24Hrs) Medications (Trade) Dose Ordered Sig/Jerica Route Start Time Stop Time Status Last Admin Dose Admin Venlafaxine HCl (effeXOR EXTENDED REL CAP) 75 mg QAM PO 10/31/17 09:00 11/30/17 08:59 10/31/17 08:57 75 MG Venlafaxine HCl (effeXOR EXTENDED REL CAP) 75 mg 0926 ONCE PO 10/30/17 09:26 10/30/17 09:30 DC 10/30/17 10:02 75 MG
[2017-11-01 07:02] VITALS: BP_SYST 112; BP_SYST 119; BP_DIAS 48; BP_DIAS 66; PULSE 70; PULSE 80; TEMP 36.5
[2017-11-01] MEDS: VENLAFAXINE HCL XR 75 MG CAPXR PO SCH (09:20)
[2017-11-01] MEDS: VENLAFAXINE HCL XR 37.5 MG CAPXR PO SCH (09:20)
--- NOTE | 2017-11-01 12:34 | Psychiatric Progress Notes ---
Progress Note Date of Service Nov 01, 2017. 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 Chief Complaint "Everyone is so nice here". Subjective Patient was seen & assessed interval progress reviewed with Nursing. Staff reports mother and sister participated in phone meeting yesterday in which aftercare had been discussed. Pt reported that sister has taken care of his schooling and travel plans. Pt is interested in returning to [facility] following discharge and will then head to [place] to stay with his mother and sister. Pt was seen today to assess progress since admission. Pt states he is in a "good mood" today, but is feeling a bit "trapped" here on the unit. He reports that everyone has been very nice, but "there is a whole world out there I cannot access". Pt denies side effects with the increased dose of Effexor this morning. He does report vivid dreams of being chased, missing exams, etc. which he feels may be related to the medication, though predate initiation of Effexor. Pt states he has had time to process his suicide attempt and now feels remorse and guilt for having done that to his loved ones. Pt is interested in learning better ways to cope with stressors, and is continuing to process what has led him to this point. Pt states his plan is to return to [facility], where it is anticipated his cousins will come to stay with him for a while. He then plans to stay with his sister and mother in [place]. He continues to states that his sister has made arrangements for his schooling and that he does not need to worry about these plans. He denies SI/HI, A/V hallucinations and other psychosis. Review of Systems Psych: denies symptoms other than stated above Constitutional: denied Cardiovascular: denied GI: denied Neurologic: denied Remainder of 10 body systems also reviewed and denied other than noted above. Sleep Information Total Hours of Sleep: 5.50 Meal Information Percent of Breakfast Consumed: 100 Percent of Lunch Consumed: 90 Percent of Dinner Consumed: 100 Mental Status Exam During interview pt is: alert and oriented, cooperative Appearance: appropriately dressed, appropriately groomed Eye contact is: good Motor behavior is: no abnormal motor movements Speech: normal in rate, rhythm & volume Affect: euthymic Mood is: other ("I'm in a good mood today") Thought process: goal directed, clear, coherent Thought content: reality based without delusions Suicidal thought are: denied (upon questioning today), Plan: present (as researched various methods extensively) Homicidal thoughts are: denied Hallucinations: denies auditory, denies visual Cognition: memory grossly intact, attention grossly intact, language grossly intact Intelligence estimated to be: average Insight: fair Judgement: fair Medication Trials 1. Zoloft- felt worse, more depressed 2. Wellbutrin - didn't like the way he felt 3. C+Xanax - overdosed on it Impression Pt reports improvement since admission. Feels his mood is improving and that he has had an opportunity to process his suicide attempt. He now reports he feels guilty as his life has not been stressful. Pt continues to agree with plan to increase Effexor. Started dosage of 112.5 this morning and reports no current side effects. Staff reported patient is not permitted to return to [employer] , and patient states his sister has arranged for him to finish his degree at home. Ongoing discussion about this process and determining aftercare. Patient continues to require inpatient mental health treatment due to the severity of his condition and the risk for self-harm if discharged prematurely. Plan (1) Major depressive disorder, recurrent severe without psychotic features 10/30 - Patient willing to increase Effexor to therapeutic dose. Will increase to 75 mg today and titrate to 150 as soon as possible - Obtain records from an coordinate care with current outpatient providers - Family meeting by phone with sister as needed - Contact the school as needed - Assist the patient to explore and utilize healthy coping strategies - Every 15 minute checks for safety - Encourage participation in group and individual counseling 10/31 - Continue increased dose of venlafaxine XR 75 mg daily, and increase to 112.5 mg daily for tomorrow. - Family meeting held with sister by phone today; she encouraged the patient to return home to be with family, which she is agreeing to. He is stating he will need to go to [facility] first, and then on to [place] to join his mother and sister. He will need aftercare in that area, so we'll need further clarification about which country he will be in and for how long. - Social work is coordinating with the [employer] regarding his status as a student here. - He will need a comprehensive safety plan. 11/01 - Continue Effexor 112.5mg. Plan in place to continue to titrate dose to 150mg. - Continue to navigate aftercare with patient and is family as he will be returning to [facility] and then heading to [place]. - Reported patient is not permitted to return to [employer] [facility] [employer] [facility] to finish his degree. - Discussed need for safety plan, which patient is agreeable to, unable to discuss convincing plan at today's encounter as processing of his suicide attempt is ongoing, but is willing to continue to work on this. (2) OK (generalized anxiety disorder) 10/30 - Assist the patient to explore concepts of mindfulness - Effexor as above Discharge / Aftercare Planning Primary Care Physician: Name: None Therapist: Name: Qasim Angel [facility] Date of Appointment: Nov 06, 2017 Time of Appointment: 12:00 p.m. Staff Radiation Therapist: Name: None Visit Code E&M Code: 43230 Inventory Assets Strengths: Love of family, willingness to engage in treatment Needs: To develop additional healthy coping strategies Risk Factors Assessment Male: Yes : Yes /single/: Yes Higher / Fall in social status: No Health problems: No Mental Health Diagnoses: Yes Substance use disorders: No Previous attempt: Yes Previous attempt;highly lethal: No Previous psychiatric stay: Yes Hopelessness: Yes Smoker: Yes Protective Factors Assessment Jew beliefs: Yes : No Responsible for young children: No Employed: No Stable relationships: Yes Supportive family: Yes Good rapport with provider: Yes Data Vital Signs Last 24 Hrs: Date Time Temp Pulse Resp B/P (MAP) Pulse Ox O2 Delivery O2 Flow Rate FiO2 11/01/17 07:02 36.5 70 16 119/48 80 112/66 Meds Administered Last 24 Hrs: Meds Administered (Past 24Hrs) Medications (Trade) Dose Ordered Sig/Jerica Route Start Time Stop Time Status Last Admin Dose Admin Venlafaxine HCl (effeXOR EXTENDED REL CAP) 75 mg QAM PO 10/31/17 09:00 11/30/17 08:59 11/01/17 09:20 75 MG Venlafaxine HCl (effeXOR EXTENDED REL CAP) 37.5 mg QAM PO 11/01/17 09:00 12/01/17 08:59 11/01/17 09:20 37.5 MG
[2017-11-02 07:05] VITALS: BP_SYST 108; BP_SYST 118; BP_DIAS 61; BP_DIAS 62; PULSE 66; PULSE 96; TEMP 36.4
[2017-11-02] MEDS: VENLAFAXINE HCL XR 37.5 MG CAPXR PO SCH (08:04)
[2017-11-02] MEDS: VENLAFAXINE HCL XR 75 MG CAPXR PO SCH (08:04)
--- NOTE | 2017-11-02 10:39 | Psych Management Progress Note ---
Psychiatry Miscellaneous Date of Service: Nov 02, 2017. Patient seen, MS assessed. Rates mood as 9/10. Encouraged cooperation with care and treatment plan as outlined by allied health prescriber. He verbalized understanding of need for safety planning around his travel but minimizes staff concerns. He will have a meeting with his girlfriend.
[2017-11-02] MEDS ORDERED: VENLAFAXINE HCL XR 37.5 MG CAPXR PO ONE (11:15)
--- NOTE | 2017-11-02 12:17 | Psychiatric Progress Notes ---
Progress Note Date of Service Nov 02, 2017. Interval History Tete Tolliver is a 27-year-old male admitted voluntarily on Oct 30, 2017 at 00:08 after being brought to the ED by his community chest officer and friends following an intentional toxic ingestion of multiple sleeping medications in a suicide attempt. Chief Complaint "I have a few questions about my discharge". Subjective Patient was seen & assessed interval progress reviewed with Treatment Team. Staff reports improvement in the patient in regard to mood. metalworker has been in contact with the patient's sister during his admission, and sister reports she is willing to purchase a plane ticket for the patient when she has a better idea of discharge date. Pt was seen today to assess progress since admission. Pt states he has questions about his length of stay as he was hoping for discharge today. Pt was informed that formal discharge planning would have to be in place prior to consideration for discharge. Pt offers suggests of resources available until he can book a flight to [facility]. He was informed we would feel more comfortable if a flight were scheduled prior to discharge to help solidify his safety plan. Pt was encouraged to allow his sister to book the flight and take care of arrangements and was informed we would discuss further after the social services coordinator is able to speak with his sister. Pt states he has tolerated Effexor well at 112.5mg. He denies side effects and is in agreement to continue to titrate the dose to a target of 150mg. Pt denies SI today and states he is in a "happy mood". Review of Systems Psych: denies symptoms other than stated above Constitutional: denied Cardiovascular: denied GI: denied Neurologic: denied Remainder of 10 body systems also reviewed and denied other than noted above. Sleep Information Total Hours of Sleep: 7.00 Meal Information Percent of Breakfast Consumed: 100 Percent of Lunch Consumed: 100 Percent of Dinner Consumed: 100 Mental Status Exam During interview pt is: alert and oriented, cooperative Appearance: appropriately dressed, appropriately groomed Eye contact is: good Motor behavior is: no abnormal motor movements Speech: normal in rate, rhythm & volume Affect: anxious (concerned about discharge arrangements) Mood is: other ("happy mood") Thought process: goal directed, clear, coherent Thought content: reality based without delusions Suicidal thought are: denied (today), Plan: present (admitted s/p OD; has researched various methods extensively) Homicidal thoughts are: denied Hallucinations: denies auditory, denies visual Cognition: memory grossly intact, attention grossly intact, language grossly intact Intelligence estimated to be: average Insight: fair Judgement: fair Medication Trials 1. Zoloft- felt worse, more depressed 2. Wellbutrin - didn't like the way he felt 3. C+Xanax - overdosed on it Impression Pt is very focused on discharge and helping with arrangements. Pt's current plan is to leave with his girlfriend and return with her to [place]. From there, he will book a flight to [facility], stay for 1-2 weeks, and then join his family in [place]. Pt was informed that this provider could not guarantee a discharge today, but would work with social work to talk with his sister and coordinate plans. At this point, discharge shouldn't be considered until concrete plans are in place and contact has been made with the parties involved. metalworker is waiting on return call from sister to continue this process. Pt plans to continue taking medications after discharge and states he will find a provider when he is in [place] about 1-2 weeks after discharge. A 30-day prescription at discharge should allow him time to make these arrangements. Will increase Effexor to target dose of 150mg today as he has been tolerating the medication well. Pt verbalized understanding and was in agreement. Ongoing inpatient mental health treatment due to high-risk suicide attempt and risk for self-harm at discharge. Pt also requires additional focus on aftercare to ensure safe discharge. Plan (1) Major depressive disorder, recurrent severe without psychotic features 10/30 - Patient willing to increase Effexor to therapeutic dose. Will increase to 75 mg today and titrate to 150 as soon as possible - Obtain records from an coordinate care with current outpatient providers - Family meeting by phone with sister as needed - Contact the school as needed - Assist the patient to explore and utilize healthy coping strategies - Every 15 minute checks for safety - Encourage participation in group and individual counseling 10/31 - Continue increased dose of venlafaxine XR 75 mg daily, and increase to 112.5 mg daily for tomorrow. - Family meeting held with sister by phone today; she encouraged the patient to return home to be with family, which she is agreeing to. He is stating he will need to go to [facility] first, and then on to [place] to join his mother and sister. He will need aftercare in that area, so we'll need further clarification about which country he will be in and for how long. - Social work is coordinating with the [employer] regarding his status as a student here. - He will need a comprehensive safety plan. 11/01 - Continue Effexor 112.5mg. Plan in place to continue to titrate dose to 150mg. - Continue to navigate aftercare with patient and is family as he will be returning to [facility] and then heading to [place]. - Reported patient is not permitted to return to [employer] to finish his degree. - Discussed need for safety plan, which patient is agreeable to, unable to discuss convincing plan at today's encounter as processing of his suicide attempt is ongoing, but is willing to continue to work on this. 11/02 - Effexor 37.5mg one time dose ordered. Pt will have received 150mg total today. Continue Effexor 150mg qAM. - Awaiting return call from sister to discuss plane ticket and discharge arrangements. - Continue to encourage group participation while on the unit. (2) OK (generalized anxiety disorder) 10/30 - Assist the patient to explore concepts of mindfulness - Effexor as above Discharge / Aftercare Planning Primary Care Physician: Name: None Therapist: Name: Qasim Angel - [facility] Date of Appointment: Nov 06, 2017 Time of Appointment: 12:00 p.m. Expediter Service Order: Name: Kasia Visit Code E&M Code: 40158 Inventory Assets Strengths: Love of family, willingness to engage in treatment Needs: To develop additional healthy coping strategies Risk Factors Assessment Male: Yes : Yes /single/: Yes Higher / Fall in social status: No Health problems: No Mental Health Diagnoses: Yes Substance use disorders: No Previous attempt: Yes Previous attempt;highly lethal: No Previous psychiatric stay: Yes Hopelessness: Yes Smoker: Yes Protective Factors Assessment Jainism beliefs: Yes : No Responsible for young children: No Employed: No Stable relationships: Yes Supportive family: Yes Good rapport with provider: Yes Data Vital Signs Last 24 Hrs: Date Time Temp Pulse Resp B/P (MAP) Pulse Ox O2 Delivery O2 Flow Rate FiO2 11/02/17 07:05 36.4 66 16 108/61 96 118/62 Meds Administered Last 24 Hrs: Meds Administered (Past 24Hrs) Medications (Trade) Dose Ordered Sig/Jerica Route Start Time Stop Time Status Last Admin Dose Admin Venlafaxine HCl (effeXOR EXTENDED REL CAP) 37.5 mg QAM PO 11/01/17 09:00 11/02/17 11:23 DC 11/02/17 08:04 37.5 MG
[2017-11-03 06:54] VITALS: BP_SYST 109; BP_DIAS 62; BP_DIAS 67; PULSE 73; PULSE 77; TEMP 36.4
[2017-11-03] MEDS ORDERED: VENLAFAXINE HCL XR 150 MG CAPXR PO SCH (09:00)
--- NOTE | 2017-11-03 09:58 | Psychiatric Progress Notes ---
Progress Note Date of Service Nov 03, 2017. 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 Chief Complaint "Very, very good. How are you?". Subjective Patient was seen & assessed interval progress reviewed with Nursing. Staff reports discharge plan is for patient to stay with his girlfriend while packing up his apartment. She also plans to handle his medication during that time. His sister will purchase a plane ticket for him to fly to [facility] later in the week. Pt was seen today to assess progress since admission. Pt states he feels he has greatly improved and is feeling much better with increased medication. He remains focused on discharge and reports that he would like to go home today so he can attend orthodox tomorrow. Comments from his meeting yesterday with the social welfare clerk were reiterated and it was explained that verification of his plane ticket takes the place of his aftercare as we are unable to do much more for his unique situation. Pt understood this and requests to be allowed to check his phone periodically. Pt denies side effects to his increased dose of Effexor. Pt denies SI/HI. Review of Systems Psych: denies symptoms other than stated above Constitutional: denied Cardiovascular: denied GI: denied Neurologic: denied Remainder of 10 body systems also reviewed and denied other than noted above. Sleep Information Total Hours of Sleep: 8.00 Meal Information Percent of Breakfast Consumed: 100 Percent of Lunch Consumed: 100 Percent of Dinner Consumed: 100 Mental Status Exam During interview pt is: alert and oriented, cooperative Appearance: appropriately dressed, appropriately groomed Eye contact is: good Motor behavior is: steady gait & station, no abnormal motor movements Speech: normal in rate, rhythm & volume Affect: euthymic (excited for potential discharge) Mood is: other ("good, good") Thought process: goal directed, linear, logical, clear, coherent Thought content: reality based without delusions Suicidal thought are: denied, Plan: present (admitted s/p OD; other methods researched) Homicidal thoughts are: denied Hallucinations: denies auditory, denies visual Cognition: memory grossly intact, attention grossly intact, language grossly intact Intelligence estimated to be: average Insight: fair Judgement: fair Medication Trials 1. Zoloft- felt worse, more depressed 2. Wellbutrin - didn't like the way he felt 3. C+Xanax - overdosed on it Impression Pt remains focused on discharge. Arrangements made with exception of verifying plane ticket to [facility]. It was explained to patient several times that this ticket takes the place of his aftercare as his situation is unique and we are not able to do much more in respect to safe discharge and long-term care. Pt is aware of interim therapy session this coming week and plans to attend. Tolerating Effexor 150mg well and will be able to obtain and take medication until he is established in [place] with his sister and mother. Pt shows a great deal of improvement, but requires inpatient treatment until appropriate discharge planning can be verified. Pt's suicide attempt was very high-risk and safe discharge to prevent harm to self or decompensation requires verification of plans to return home. Plan (1) Major depressive disorder, recurrent severe without psychotic features 10/30 - Patient willing to increase Effexor to therapeutic dose. Will increase to 75 mg today and titrate to 150 as soon as possible - Obtain records from an coordinate care with current outpatient providers - Family meeting by phone with sister as needed - Contact the school as needed - Assist the patient to explore and utilize healthy coping strategies - Every 15 minute checks for safety - Encourage participation in group and individual counseling 10/31 - Continue increased dose of venlafaxine XR 75 mg daily, and increase to 112.5 mg daily for tomorrow. - Family meeting held with sister by phone today; she encouraged the patient to return home to be with family, which she is agreeing to. He is stating he will need to go to [facility] first, and then on to [place] to join his mother and sister. He will need aftercare in that area, so we'll need further clarification about which country he will be in and for how long. - Social work is coordinating with the [employer] regarding his status as a student here. - He will need a comprehensive safety plan. 11/01 - Continue Effexor 112.5mg. Plan in place to continue to titrate dose to 150mg. - Continue to navigate aftercare with patient and is family as he will be returning to [facility] and then heading to [place]. - Reported patient is not permitted to return to [employer] [facility] to finish his degree. - Discussed need for safety plan, which patient is agreeable to, unable to discuss convincing plan at today's encounter as processing of his suicide attempt is ongoing, but is willing to continue to work on this. 11/02 - Effexor 37.5mg one time dose ordered. Pt will have received 150mg total today. Continue Effexor 150mg qAM. - Awaiting return call from sister to discuss plane ticket and discharge arrangements. - Continue to encourage group participation while on the unit. 11/03 - Tolerating Effexor 150mg. Continue current medication regimen - Confirm plane ticket to [place]. Pt permitted to check phone periodically while on the unit as his sister will be sending the confirmation to him. - Appropriate for discharge once all aftercare planning has been verified. (2) OK (generalized anxiety disorder) 10/30 - Assist the patient to explore concepts of mindfulness - Effexor as above Discharge / Aftercare Planning Primary Care Physician: Name: None Therapist: Name: Qasim Angel - [facility] Date of Appointment: Nov 06, 2017 Time of Appointment: 12:00 p.m. Head Sawyer: Name: None Visit Code E&M Code: 22795 Inventory Assets Strengths: Love of family, willingness to engage in treatment Needs: To develop additional healthy coping strategies Risk Factors Assessment Male: Yes : Yes /single/: Yes Higher / Fall in social status: No Health problems: No Mental Health Diagnoses: Yes Substance use disorders: No Previous attempt: Yes Previous attempt;highly lethal: No Previous psychiatric stay: Yes Hopelessness: Yes Smoker: Yes Protective Factors Assessment Advent beliefs: Yes : No Responsible for young children: No Employed: No Stable relationships: Yes Supportive family: Yes Good rapport with provider: Yes Data Vital Signs Last 24 Hrs: Date Time Temp Pulse Resp B/P (MAP) Pulse Ox O2 Delivery O2 Flow Rate FiO2 11/03/17 06:54 36.4 73 14 109/67 77 109/62 Meds Administered Last 24 Hrs: Meds Administered (Past 24Hrs) Medications (Trade) Dose Ordered Sig/Jerica Route Start Time Stop Time Status Last Admin Dose Admin Venlafaxine HCl (effeXOR EXTENDED REL CAP) 37.5 mg NOW ONCE PO 11/02/17 11:15 11/02/17 11:16 DC 11/02/17 12:13 37.5 MG Venlafaxine HCl (effeXOR EXTENDED REL CAP) 150 mg QAM PO 11/03/17 09:00 12/03/17 08:59 11/03/17 09:24 150 MG
[2017-11-03] MEDS ORDERED: EFFSR150 PO (12:42)
--- NOTE | 2017-11-03 12:53 | Discharge Instructions ---
Discharge Information Report Includes Report will include the: Discharge Instructions & Summary Admission Admission Date / Time: Oct 30, 2017 at 00:08 Reason for Admission: MDR Discharge Discharge Diagnosis / Problem: Major depressive disorder Condition at Discharge: Good Discharge Goals Goal(s): Decrease discomfort, Improve function, Increase independence, Learn about illness, Therapeutic intervention Activity Recommendations Activity Limitations: resume your previous activity . Instructions / Follow-Up Instructions / Follow-Up . SPECIAL CARE INSTRUCTIONS: 1. Follow through with your scheduled aftercare appointments. If unable to keep an appointment, please call to reschedule. 2. Take your medication only as prescribed. Medication should not be changed or stopped without the approval of your doctor. In the event of worsening symptoms or concerns about side effects, contact your doctor immediately. 3. Utilize new healthy coping skills, anger management skills, and stress management skills learned during your hospitalization. Journal feelings and process them with a support person. Identify stressors or situations that may result in relapse, deterioration or inappropriate behaviors and develop a plan to deal with those issues. 4. If your coping skills are ineffective and you are in crisis, contact your outpatient providers for direction. If unable to reach your providers, please call the CAN HELP LINE AT or go to the closest Emergency Room. 5. Avoid alcohol and un-prescribed drugs. 6. You have been provided with the Mental Health Advance Directives Pamphlet for your review. AFTERCARE APPOINTMENTS: * Please call your insurance company prior to your scheduled appointment to confirm your aftercare providers are covered. Take your insurance information to your appointments. . Discharge / Aftercare Planning Primary Care Physician: Name: None Therapist: Name Of Therapist: Qasim Angel - [facility] Date of Appointment: Nov 06, 2017 Time of Appointment: 12:00 p.m. Cell Liner: Name: None . Follow-Up Care Plan for Follow-Up Care: Pt to have interim therapy session next week and will return to [facility] prior to going to [place] to be with his family. Pt states he will set up medical care in [place] once he arrives. 30 prescription sent which should allow him time to set up these services. Current Hospital Diet Patient's current hospital diet: Regular Diet Discharge Diet Recommended Diet: Regular Diet Procedures Procedures Performed: No Pending Studies Pending Studies at Discharge: No Medical Emergencies . Who to Call and When: Medical Emergencies: For questions or emergencies related to your hospital stay, please contact the Inpatient Behavioral Health Unit at [phone]. A healthcare customer service is on-call 30/04 for the Behavioral Health Unit for emergencies At any time you feel your situation is an emergency, you may also call 911 immediately. . Non-Emergent Contact Non-Emergency issues call your: Primary Care Provider, Therapist Advance Directives Do You Have an Existing Mental: No Existing Living Will: No Existing Power of Shell Maker Lockstitch: No Advance Directives Info Given: To Pt/S.O. Advance Directives Reason: Declines as Mental Health Visit. 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 At that time he was treated with Zoloft and discharged to the outpatient care of Dr. Jackson. Since that time he apparently has also had a trial of Wellbutrin which she said he felt unwell on. Today his story is a little disjointed and unclear. 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 He feels, however, that he has not excelled in his studies and has a current GPA of just over 2.0. He has been struggling academically and last semester did not take at least one final which she was scheduled to take on Sunday morning. He got to worrying about that, feeling that if he took the final and failed, he would have to pay back his scholarships from [facility]. He did not want to risk this and so in view of his poor self image and risk for losing his scholarships, he began to consider the option of suicide. He is also under stress with his family. Apparently his mother is quite ill, in [place], and having some problems with her memory. He indicates that she had a stomach surgery with complications resulting in seizures. He says she is not fully intact, not remembering many times that he is in school in [place]. He feels, as her only son, that he should be there however he is not able to and so his sister is there with her and feels like he is also letting his sister down. Philosophically, he believes that suicide is not a sin and does not necessarily reflect state of depression but more a logical choice given the above stressors. On Sunday, he made a decision to end his life. He says he got "dressed up" and ingested [id number] sleeping pills and Xanax in a suicide attempt. He knew that that would not kill him and so he put 2 bags over his head and secured them with earphones in his ears playing his favorite music. Nursing staff also report that his phone was and perhaps hidden so that he could not summoned help. The patient remembers little after putting bags on his head and at 5:00 on Sunday, he was awakened by knocking at the door. At that time he found that he had no pants on , had vomited in his room, had ripped off the bags over his head. It is reported that his family friends and anabaptism plant safety engineer had attempted to contact him because he did not show up at anabaptism. They ended up going to his apartment and found him in that condition. He did admit to his anabaptism plant safety engineer that he had taken the overdose and they brought him to the emergency department. He reports that his mood is been depressed for 2 or 3 years, and suicidal thinking has been going on intermittently recently. He reports that his sleep has been "horrible" and says that he wakes up feeling unrested and his mind immediately racing. He reports appetite that is essentially normal but he believes he is putting on weight because he is not active. He says his energy is "as low as it gets" although forces himself to be active and energetic when people are around. He denies any overt auditory or visual hallucinations. He does admit to a lot of negative self talk telling himself that he is stupid and unworthy. He says he has had a lot of anxiety especially in the last year having experienced a panic attack about one year ago. He denies any problems with eating disorders. He denies any discrete episodes of euphoric mood, sleeplessness or pleasure seeking behaviors that would be congruent with a bipolar disorder. He sees Dr. Jackson at [facility] 2 has recommended a higher dose of Effexor but the patient has not wanted to take more because in his culture it is not seen positively. She had wanted him to take 75 but he is only taking 37.5 mg. Hospital Course (1) Major depressive disorder, recurrent severe without psychotic features 10/30 - Patient willing to increase Effexor to therapeutic dose. Will increase to 75 mg today and titrate to 150 as soon as possible - Obtain records from an coordinate care with current outpatient providers - Family meeting by phone with sister as needed - Contact the school as needed - Assist the patient to explore and utilize healthy coping strategies - Every 15 minute checks for safety - Encourage participation in group and individual counseling 10/31 - Continue increased dose of venlafaxine XR 75 mg daily, and increase to 112.5 mg daily for tomorrow. - Family meeting held with sister by phone today; she encouraged the patient to return home to be with family, which she is agreeing to. He is stating he will need to go to [facility] first, and then on to [place] to join his mother and sister. He will need aftercare in that area, so we'll need further clarification about which country he will be in and for how long. - Social work is coordinating with the [employer] regarding his status as a student here. - He will need a comprehensive safety plan. 11/01 - Continue Effexor 112.5mg. Plan in place to continue to titrate dose to 150mg. - Continue to navigate aftercare with patient and is family as he will be returning to [facility] and then heading to [place]. - Reported patient is not permitted to return to [facility] to finish his degree. - Discussed need for safety plan, which patient is agreeable to, unable to discuss convincing plan at today's encounter as processing of his suicide attempt is ongoing, but is willing to continue to work on this. 11/02 - Effexor 37.5mg one time dose ordered. Pt will have received 150mg total today. Continue Effexor 150mg qAM. - Awaiting return call from sister to discuss plane ticket and discharge arrangements. - Continue to encourage group participation while on the unit. 11/03 - Tolerating Effexor 150mg. Continue current medication regimen - Confirm plane ticket to [facility]. Pt permitted to check phone periodically while on the unit as his sister will be sending the confirmation to him. - Appropriate for discharge once all aftercare planning has been verified. (2) OK (generalized anxiety disorder) 10/30 - Assist the patient to explore concepts of mindfulness - Effexor as above Risk Factors Assessment Male: Yes : Yes /single/: Yes Higher / Fall in social status: No Health problems: No Mental Health Diagnoses: Yes Substance use disorders: No Previous attempt: Yes Previous attempt;highly lethal: No Previous psychiatric stay: Yes Hopelessness: Yes Smoker: Yes Protective Factors Assessment Uatsdin beliefs: Yes : No Responsible for young children: No Employed: No Stable relationships: Yes Supportive family: Yes Good rapport with provider: Yes Day of Discharge Assessment Hospital Course - Pt was admitted to [address] [place] [address] on 10/30/17 after a suicide attempt involving overdose of "sleeping pills" and Xanax as well as securing bags around his head. Pt was agreeable to treatment on the unit and his dose of Effexor was titrated to 150mg to target his ongoing anxiety and depression. Pt participated in group therapy and activities while on the unit and his condition improved greatly. Pt and his sister were greatly involved in discharge planning as his plan was to return to [facility] and then travel to [place]. Day of Discharge Assessment - Patient was seen & assessed interval progress reviewed with Nursing. Staff reports discharge plan is for patient to stay with his girlfriend while packing up his apartment. She also plans to handle his medication during that time. His sister will purchase a plane ticket for him to fly to [facility] later in the week. Pt was seen today to assess progress since admission. Pt states he feels he has greatly improved and is feeling much better with increased medication. He remains focused on discharge and reports that he would like to go home today so he can attend anabaptism tomorrow. Comments from his meeting yesterday with the social worker health services were reiterated and it was explained that verification of his plane ticket takes the place of his aftercare as we are unable to do much more for his unique situation. Pt understood this and requests to be allowed to check his phone periodically. Pt denies side effects to his increased dose of Effexor. Pt denies SI/HI. Laboratory Refer to printed laboratory reports Test 10/29/17 19:05 10/29/17 19:36 10/29/17 19:39 10/29/17 19:50 Urine Opiates Screen NEG Urine Methadone, Qualitative NEG Urine Barbiturates NEG Urine Phencyclidine (PCP) Level NEG Ur Amphetamine/Methamphetamine NEG MDMA (Ecstasy) Screen NEG Urine Hydroxyalprazolam Confirm 1570 Urine Benzodiazepines Screen POS 7-Amino Clonazepam Level NEGATIVE Urine Nordiazepam Confirmation NEGATIVE Urine Hydroxyethylflurazepam Level NEGATIVE Urine Lorazepam (GC/MS) NEGATIVE Urine Oxazepam Confirm (GC/MS) NEGATIVE Urine Temazepam Confirmation NEGATIVE Urine Hydroxytriazolam Confirmation NEGATIVE Urine Hydroxymidazolam Confirmation NEGATIVE Urine Cocaine Metabolite NEG Urine Marijuana (THC) NEG White Blood Count 6.99 Red Blood Count 5.04 Hemoglobin 15.6 Hematocrit 43.8 Mean Corpuscular Volume 86.9 Mean Corpuscular Hemoglobin 31.0 Mean Corpuscular Hemoglobin Concent 35.6 Platelet Count 247 Mean Platelet Volume 10.5 Neutrophils (%) (Auto) 59.0 Lymphocytes (%) (Auto) 30.8 Monocytes (%) (Auto) 8.7 Eosinophils (%) (Auto) 1.1 Basophils (%) (Auto) 0.1 Neutrophils # (Auto) 4.12 Lymphocytes # (Auto) 2.15 Monocytes # (Auto) 0.61 Eosinophils # (Auto) 0.08 Basophils # (Auto) 0.01 RDW Standard Deviation 41.1 RDW Coefficient of Variation 12.9 Immature Granulocyte % (Auto) 0.3 Immature Granulocyte # (Auto) 0.02 Ethyl Alcohol mg/dL < 3.0 Prothrombin Time 10.0 Prothrombin Time INR 1.0 Sodium Level 139 Potassium Level 3.6 Chloride Level 105 Carbon Dioxide Level 30 Anion Gap 4.0 Blood Urea Nitrogen 10 Creatinine 0.93 Est Creatinine Clear Calc Drug Dose 113.6 Estimated GFR () 131.8 Estimated GFR (Non- 113.7 BUN/Creatinine Ratio 11.0 Random Glucose 77 Calcium Level 8.8 Magnesium Level 1.9 Total Bilirubin 0.5 Aspartate Amino Transferase (AST) 15 Alanine Aminotransferase (ALT) 32 Alkaline Phosphatase 75 Total Protein 7.0 Albumin 3.7 Globulin 3.3 Albumin/Globulin Ratio 1.1 Lipase 192 Thyroid Stimulating Hormone (TSH) 0.429 Salicylates Level < 1.7 Acetaminophen Level < 2 Urine Color YELLOW Urine Appearance CLEAR Urine pH 6.5 Urine Specific [place] 1.016 Urine Protein NEG Urine Glucose (UA) NEG Urine Ketones NEG Urine Occult Blood NEG Urine Nitrite NEG Urine Bilirubin NEG Urine Urobilinogen NEG Urine Leukocyte Esterase NEG Total Time Total Time Spent (min): Greater than 30 minutes Total Time Included: examination of the patient, discharge planning, medication reconciliation Tobacco Cessation at Discharge Smoking Status: Light Tobacco Smoker FDA approved Prescription: declined med & out pt counseling
[2017-11-03] MEDS ORDERED: DESTROY THIS MEDICATION ONE (13:00)
== END 2017-11-03 14:25 | disposition home or self-care (01) | DRG 885 ==
LOC: EDBD 18:23 → C.EDB 18:23 → C.MHU 10-30 00:08 → MERGE 10-30 00:08
PROVIDERS: ADMIT Psychiatry & Neurology Psychiatry; ATTEND Psychiatry & Neurology Psychiatry
DX: F33.2 Major depressive disorder, recurrent severe without psychotic features (principal); F41.1 Generalized anxiety disorder; T42.4X2A Poisoning by benzodiazepines, intentional self-harm, initial encounter; T42.72XA Poisoning by unspecified antiepileptic and sedative-hypnotic drugs, intentional self-harm, initial encounter; F17.200 Nicotine dependence, unspecified, uncomplicated; Z91.5 Personal history of self-harm; Z79.899 Other long term (current) drug therapy; Z81.8 Family history of other mental and behavioral disorders